=== PATIENT | female | born 1990 | race African-American/Black ===

== ENCOUNTER → 2019-11-08 | Outpatient (CLI) | payer OTHER ==
--- NOTE | 2019-11-08 15:58 | Diagnostic Imaging Report ---
Exam: Lumbar spine MRI without IV contrast History: Lumbar strain, sharp back pain. Comparison studies: None Technique: Sagittal, axial coronal T2, sagittal T1, axial oblique proton density and axial T2 FS. Intravenous contrast: None Findings: Number of lumbar vertebral bodies: 5. Alignment: Normal lordosis. Mild thoracolumbar levocurvature. Soft tissues: No T2 hyperintense inflammatory changes. Paraspinal muscles: No signal abnormalities. Well-preserved. No atrophic changes Lower thoracic cord: Normal in signal and morphology. The tip of the conus to right at L1. Cauda equina: No masses. No arachnoiditis. Vertebrae: No compression fracture or infection. Incidental focal fatty marrow replacement along the superior T11 endplate may be a small hemangioma. Otherwise, no neoplasm. Degenerative changes: Discs are of normal height and signal. No disc herniation. Patent canal and foramina. Small synovial cyst present posterior to the left L5-S1 facet. Included sacroiliac joints: No joint effusion or marrow edema. Incidental findings: Incompletely heterogeneous T2 hyperintense lesion in the medial right lobe of the liver which measures at least 4.5 cm. Cannot further evaluate on this exam. IMPRESSION: 1. No abnormalities to account for patient's back pain. 2. Patent spinal canal and neural foramina. No disc herniation. 3. Incidental indeterminate liver lesion. Recommend abdomen CT or MRI liver mass protocol with IV contrast to further evaluate. Signed by: Dr. Neto Castillo M.D. on 11/08/2019 3:55 PM
== END ==
LOC: MRI 12:40
PROVIDERS: ATTEND Family Medicine
DX: S39.012A Strain of muscle, fascia and tendon of lower back, initial encounter (principal)
CPT/HCPCS: 72148